=== PATIENT | female | born 2000 | race Two or more races ===

== ENCOUNTER → 2022-07-09 | Emergency (ER) | payer OTHER ==
--- NOTE | 2022-07-09 00:36 | NUR ---
CALLED TO TRIAGE, NO RESPONSE
--- NOTE | 2022-07-09 00:50 | NUR ---
CALLED TO TRIAGE, NO RESPONSE
== END | disposition left against medical advice (07) ==
LOC: ER 00:13
DX: Z53.21 Procedure and treatment not carried out due to patient leaving prior to being seen by health care provider (principal)